=== PATIENT | female | born 1950 | race Caucasian/White ===

== ENCOUNTER → 2017-09-28 | Outpatient (CLI) | payer MEDICARE ==
[~2017-09-28] VITALS: Ht 169.2 cm; Wt 74.1 kg
[~2017-09-28] MED LIST: AMLO5TAB2 PO; BISO10TA5 PO; BUPR100T4 PO; CALC1TAB87 PO; CHLORHEXIDINE GLUCONATE 2 % 1 PACK (2 CLOTHS) TOPICAL PRN; DILA100C PO; DO NOT ADM ANY ANTICOAGULANT DRUGS PRN; FERR325T18 PO; FOLI400T PO; LACTATED RINGER'S 1000 ML IV PRN; METOPROLOL TARTRATE 25 MG TAB PO PRN; POVIDONE IODINE 5% (ANTISEPSIS KIT) 4 APPLICATIONS EACH NARE PRN; PROP20TA3 PO; PROT40TA PO; SODIUM CHLORID 0.9% 500 ML IV PRN; VITA250C3 CHEW; ZANT150T2 PO
--- NOTE | 2017-09-28 11:14 | EKG ---
Date Performed: 09/28/2017 Time Performed: 08:02:25 PTAGE: 67 years EKG: Sinus rhythm NORMAL ECG NO PREVIOUS TRACING DOCTOR: Jaiden Figueroa Interpretating Date/Time 09/28/2017 11:11:44
--- NOTE | 2017-09-28 11:47 | PD.PROCEDR ---
GI Procedure PROCEDURE PERFORMED Endoscopic ultrasound INDICATION FOR PROCEDURE Dilated bile duct and pancreatic duct PROCEDURE: The procedure, risks and benefits were discussed with Ms. Guy and informed consent was obtained. Anesthesia sedated her with Diprivan. She was placed in the left lateral decubitus position. Endoscopic ultrasound: The Pentax videoscope was introduced through the oropharynx and advanced to the second portion of the duodenum under direct visualization. FINDINGS: The pancreatic parenchyma appeared to be unremarkable and within normal limits from head to tail Pancreatic duct also appeared to be unremarkable The common bile duct measured 6 mm is within normal range with no filling defects and no other abnormalities The ampulla was not visualized due to the fact that it was within a duodenal diverticulum No lymphadenopathy was noted The gallbladder appeared to be unremarkable and within normal limits ESTIMATED BLOOD LOSS: None SPECIMENS REMOVED: None COMPLICATIONS: None IMPRESSION: Duodenal diverticulum Mild prominence of the common bile duct Otherwise unremarkable endoscopic ultrasound PLAN: Follow-up in clinic in 4 weeks CBC with a CMP prior office visit Delmar Huerta MD Sep 28, 2017 11:47
[2017-09-28 12:20] VITALS: BP 160/76; PULSE 81; RESP 20; TEMP 97.4; O2SAT 97
== END ==
LOC: HSDC 07:39
PROVIDERS: ATTEND Internal Medicine Gastroenterology
DX: K83.8 Other specified diseases of biliary tract (principal); K57.10 Diverticulosis of small intestine without perforation or abscess without bleeding; Z01.810 Encounter for preprocedural cardiovascular examination
CPT/HCPCS: 00731; 43259; 93005; J7120